=== PATIENT | male | born 1955 | race Two or more races ===

== ENCOUNTER 2024-09-16 14:36 | Emergency (ER) | payer OTHER ==
[~2024-09-16] VITALS: Ht 177.8 cm; Wt 93.0 kg
[2024-09-16] MEDS ORDERED: ZESTRIL40 M1 (14:53)
== END 2024-09-16 20:57 | disposition home or self-care (01) ==
LOC: ER 15:14
DX: R60.0 Localized edema (principal); I10 Essential (primary) hypertension

== ENCOUNTER 2024-10-09 11:22 | Outpatient (CLI) | payer OTHER ==
[~2024-10-09 11:22] MED LIST: ZESTRIL40 M1
== END 2024-10-09 11:27 | disposition home or self-care (01) ==
LOC: RAD 11:22
PROVIDERS: ATTEND Internal Medicine
DX: M25.571 Pain in right ankle and joints of right foot (principal); M25.572 Pain in left ankle and joints of left foot